=== PATIENT | male | born 1985 | race Caucasian/White ===

== ENCOUNTER 2017-05-30 13:34 | Emergency (ER) | payer SELFPAY ==
[2017-05-30 15:46] VITALS: BP 118/66
--- NOTE | 2017-05-30 16:22 | UC ---
Asthma HPI - HPI Summary HPI Summary: This is a 31 yo gentleman with asthma who ran out of his inhalers. He has been out of his Breo ~2 weeks and his albuterol ~2d. He has had some increased SOB since being without his inhalers, but nothing severe. His PCP left their prior practice and he has not established with a new one yet. Denies cough, SOB at time of exam. No fevers or other acute illness. - History of Current Complaint Chief Complaint: UCAsthma Stated Complaint: SOB ASTHMA - Allergy/Home Medications Allergies/Adverse Reactions: Allergies Allergy/AdvReac Type Severity Reaction Status Date / Time No Known Allergies Allergy Verified 05/30/17 14:14 PMH/Surg Hx/FS Hx/Imm Hx Respiratory History: Asthma - Surgical History Surgical History: None - Family History Known Family History: Positive: Respiratory Disease - Asthma - Social History Alcohol Use: Occasionally Substance Use Type: Marijuana Smoking Status (MU): Never Smoked Tobacco Household Exposure Type: Cigarettes Review of Systems Constitutional: Negative Skin: Negative Eyes: Negative ENT: Negative Respiratory: Shortness Of Breath Cardiovascular: Negative Gastrointestinal: Negative Genitourinary: Negative Motor: Negative Neurovascular: Negative Musculoskeletal: Negative Neurological: Negative Psychological: Negative All Other Systems Reviewed And Are Negative: Yes Physical Exam Triage Information Reviewed: Yes Appearance: Well-Appearing Vital Signs: Initial Vital Signs Temp 97.5 F 05/30/17 14:10 Pulse 84 05/30/17 14:10 Resp 18 05/30/17 14:10 BP 122/76 05/30/17 14:10 Pulse Ox 100 05/30/17 14:10 Vital Signs Reviewed: Yes Respiratory: Positive: Chest non-tender, Lungs clear, Decreased breath sounds - diffusely. Negative: Rhonchi, Stridor, Wheezing Cardiovascular: Positive: RRR, No Murmur Asthma Course/Dx - Course Course Of Treatment: This is a 31 yo with asthma who has run out of his inhalers. No distress at time of exam. Referral to new PCP has been made and 1 month supply of inhalers sent. - Differential Dx/Diagnosis Differential Diagnosis/HQI/PQRI: Bronchitis, COPD Excerbation, Pneumonia Provider Diagnoses: 1. Asthma Discharge - Discharge Plan Condition: Stable Disposition: AGAINST MEDICAL ADVICE Prescriptions: Albuterol HFA INHALER* [Ventolin HFA Inhaler*] 2 puff INH Q6H PRN #1 mdi PRN Reason: shortness of breath/cough Fluticasone Furoate-Vilanterol [Breo Ellipta 200-25 Mcg/INH] 1 inh PO DAILY #1 inh Patient Education Materials: Asthma (ED) Referrals: No Primary Care Phys,NOPCP [Primary Care Provider] - Additional Instructions: Activity: As tolerated Instructions: 1. Resume use of inhalers
--- NOTE | 2017-06-01 10:24 | UC ---
Progress - Progress Note Progress Note: Patient called about a problem with albuterol rx. I spoke with the pharmacist at [facility] and the prescription for Pro-air is ready with no copay.
== END 2017-05-30 16:21 | disposition left against medical advice (07) ==
LOC: UCEAST 13:34
DX: J45.909 Unspecified asthma, uncomplicated (principal)
CPT/HCPCS: 99212; G0463

== ENCOUNTER 2017-08-30 10:01 | Emergency (ER) | payer SELFPAY ==
[2017-08-30 10:13] VITALS: BP 125/82
[2017-08-30] MEDS ORDERED: NS 0.9% 1000 ML* 1,000 ML IV ONE (10:29)
[2017-08-30] MEDS ORDERED: methylPREDNISolone 125 MG* 2 ML VIAL IV ONE (10:29)
[2017-08-30] MEDS ORDERED: Magnesium Sulfate 2 GM IV* 2 GM/50 ML BAG IV ONE (10:29)
[2017-08-30] MEDS ORDERED: Albuterol/Ipratropium NEB.SOL* Albuterol 2.5 MG/Ipratropium 0.5 MG 3 ML ONE (10:32)
[2017-08-30] MEDS ORDERED: Albuterol 2.5 MG/3 ML NEB.SOL* (0.083%) INH SCH (11:00)
--- NOTE | 2017-08-30 11:00 | RAD ---
Indication: Wheezing, slight fever, generalized aches. History of asthma. Comparison: May 14, 2016 Technique: Upright AP 1035 hours Report: Elevated lung volumes may reflect obstructive lung disease or simply exuberant inspiratory effort for examination. No pulmonary infiltrate, focal pulmonary lesion, pleural effusion, pneumothorax. The heart, pulmonary vasculature, and mediastinal contours are unremarkable. IMPRESSION: 1. Elevated lung volumes may reflect obstructive lung disease or simply exuberant inspiratory effort for examination. 2. No evidence for pneumonia.
[2017-08-30 11:02] LABS: PCO2 Arterial 35 mmHg (35-45)
[2017-08-30 11:17] LABS: Hematocrit 43 % (42-52); Hemoglobin 14.4 g/dl (14.0-18.0); Mean Corpuscular HGB Conc 33 g/dl (31-36); Mean Corpuscular Hemoglobin 31 pg (27-31); Mean Corpuscular Volume 92 fL (80-94); Mean Platelet Volume 8 um3 (7.4-10.4); Red Blood Count 4.71 10^6/ul (4.0-5.4); Red Cell Distribution Width 15 % (10.5-15); White Blood Count 15.4 10^3/ul (3.5-10.8)
[2017-08-30 11:36] LABS: Albumin 4.2 g/dL (3.2-5.2); BUN/Creatinine Ratio 11.8 (8-20); C Reactive Protein 21.25 mg/L (< 5.00); Calcium 9.5 mg/dL (8.6-10.3); EGFR African American 110.3 (>60); EGFR Non-African American 85.8 (>60); Globulin 3.2 g/dL (2-4); Potassium 3.7 mmol/L (3.5-5.0); Total Bilirubin 1.3 mg/dL (0.2-1.0); Total Protein 7.4 g/dL (6.4-8.9)
[2017-08-30] MEDS ORDERED: Albuterol HFA INHALER* 8 gm MDI INH ONE (13:36)
--- NOTE | 2017-09-01 08:10 | ED ---
Abdi Banerjee Angela, scribed for Noel Camacho MD on 08/30/17 at 1034 . Shortness of Breath - HPI Summary HPI Summary: This pt is a 32 y/o male presenting to [facility] [place] c/o SOB and productive cough x2 days. Pt reports he has generalized body ache. Pt is very SOB and is not speaking in full sentences. He denies being intubated before. Per triage note, pt reports slight fevers and dyspnea. Per triage note, pt has tried Mucinex and tylenol with no relief. PMHx: asthma - History of Current Complaint Chief Complaint: EDShortnessOfBreath Time Seen by Provider: 08/30/17 10:29 Hx Obtained From: Patient Onset/Duration: Lasting Days, Still Present Timing: Constant Current Severity: Severe Associated Signs & Symptoms: Cough (Productive), Wheezing - Allergy/Home Medications Allergies/Adverse Reactions: Allergies Allergy/AdvReac Type Severity Reaction Status Date / Time No Known Allergies Allergy Verified 05/30/17 14:14 PMH/Surg Hx/FS Hx/Imm Hx Endocrine/Hematology History: Denies: Hx Diabetes, Hx Thyroid Disease Cardiovascular History: Denies: Hx Hypertension Respiratory History: Reports: Hx Asthma Denies: Hx Chronic Obstructive Pulmonary Disease (COPD) GI History: Denies: Hx Ulcer Sensory History: Reports: Hx Contacts or Glasses - glasses Opthamlomology History: Reports: Hx Contacts or Glasses - glasses - Immunization History Date of Tetanus Vaccine: Unknown Infectious Disease History: No Infectious Disease History: Denies: Hx Clostridium Difficile, Hx Hepatitis, Hx Human Immunodeficiency Virus (HIV), Hx of Known/Suspected MRSA, Hx Shingles, Hx Tuberculosis, Hx Known/ Suspected VRE, Hx Known/Suspected VRSA, History Other Infectious Disease, Traveled Outside the [place] in Last 30 Days - Family History Known Family History: Positive: Respiratory Disease - Asthma - Social History Alcohol Use: Occasionally Hx Substance Use: Yes Substance Use Type: Reports: Marijuana Hx Tobacco Use: No Smoking Status (MU): Never Smoked Tobacco Review of Systems Positive: Fever - slight. Negative: Chills Eyes: Negative ENT: Negative Cardiovascular: Negative Positive: Shortness Of Breath, Cough Positive: Myalgia All Other Systems Reviewed And Are Negative: Yes Physical Exam - Summary Physical Exam Summary: VITAL SIGNS: Reviewed. GENERAL: Patient is a well-developed and nourished male. Patient is in acute respiratory distress. He is not able to speak in full sentences. HEAD AND FACE: No signs of trauma. ~No ecchymosis, hematomas or skull depressions. No sinus tenderness. EYES: PERRLA, EOMI x 2, No injected conjunctiva, no nystagmus. EARS: Hearing grossly intact. Ear canals and tympanic membranes are within normal limits. MOUTH: Oropharynx within normal limits. NECK: Supple, trachea is midline, no adenopathy, no JVD, no carotid bruit, no c- spine tenderness, neck with full ROM. CHEST: Symmetric, no tenderness at palpation LUNGS: Pt has decreased breath sounds. Slight wheezing in both apices of the lungs. CVS: Regular rate and rhythm, S1 and S2 present, no murmurs or gallops appreciated. ABDOMEN: Soft, non-tender. No signs of distention. No rebound no guarding, and no masses palpated. Bowel sounds are normal. EXTREMITIES: FROM in all major joints, no edema, no cyanosis or clubbing. NEURO: Alert and oriented x 3. No acute neurological deficits. Speech is normal and follows commands. SKIN: Dry and warm Triage Information Reviewed: Yes Vital Signs On Initial Exam: Initial Vitals Temp Pulse Resp BP Pulse Ox 99.1 F 72 20 125/82 97 08/30/17 10:11 08/30/17 10:11 08/30/17 10:11 08/30/17 10:11 08/30/17 10:11 Vital Signs Reviewed: Yes Diagnostics - Vital Signs Vital Signs Temp Pulse Resp BP Pulse Ox 08/30/17 10:11 99.1 F 72 20 125/82 97 - Laboratory Lab Results: Lab Results 08/30/17 08/30/17 08/30/17 Range/Units 10:44 11:04 11:04 WBC (3.5-10.8) 10^3/ul RBC (4.0-5.4) 10^6/ul Hgb (14.0-18.0) g/dl Hct (42-52) % MCV (80-94) fL MCH (27-31) pg MCHC (31-36) g/dl RDW (10.5-15) % Plt Count (150-450) 10^3/ul MPV (7.4-10.4) um3 Neut % (Auto) (38-83) % Lymph % (Auto) (25-47) % Anderson % (Auto) (1-9) % Eos % (Auto) (0-6) % Baso % (Auto) (0-2) % Absolute Neuts (auto) (1.5-7.7) 10^3/ul Absolute Lymphs (auto) (1.0-4.8) 10^3/ul Absolute Monos (auto) (0-0.8) 10^3/ul Absolute Eos (auto) (0-0.6) 10^3/ul Absolute Basos (auto) (0-0.2) 10^3/ul Absolute Nucleated RBC 10^3/ul Nucleated RBC % ABG pH 7.40 (7.35-7.45) ABG pCO2 35 (35-45) mmHg ABG pO2 71 L (80-100) mmHg ABG HCO3 22.9 (19-31) mmol/L ABG O2 Saturation 96.9 (95-98) % ABG Base Excess -2.5 L (-2.0-2.0) Sodium 135 (133-145) mmol/L Potassium 3.7 (3.5-5.0) mmol/L Chloride 107 (101-111) mmol/L Carbon Dioxide 23 (22-32) mmol/L Anion Gap 5 (2-11) mmol/L BUN 12 (6-24) mg/dL Creatinine 1.02 (0.67-1.17) mg/dL Est GFR ( Amer) 110.3 (>60) Est GFR (Non-Af Amer) 85.8 (>60) BUN/Creatinine Ratio 11.8 (8-20) Glucose 113 H (70-100) mg/dL Calcium 9.5 (8.6-10.3) mg/dL Total Bilirubin 1.30 H (0.2-1.0) mg/dL AST 26 (13-39) U/L ALT 23 (7-52) U/L Alkaline Phosphatase 85 (34-104) U/L C-Reactive Protein 21.25 H (< 5.00) mg/L B-Natriuretic Peptide 55 ( - 100) pg/mL Total Protein 7.4 (6.4-8.9) g/dL Albumin 4.2 (3.2-5.2) g/dL Globulin 3.2 (2-4) g/dL Albumin/Globulin Ratio 1.3 (1-3) 08/30/17 Range/Units 11:04 WBC 15.4 H (3.5-10.8) 10^3/ul RBC 4.71 (4.0-5.4) 10^6/ul Hgb 14.4 (14.0-18.0) g/dl Hct 43 (42-52) % MCV 92 (80-94) fL MCH 31 (27-31) pg MCHC 33 (31-36) g/dl RDW 15 (10.5-15) % Plt Count 264 (150-450) 10^3/ul MPV 8 (7.4-10.4) um3 Neut % (Auto) 67.3 (38-83) % Lymph % (Auto) 21.5 L (25-47) % Anderson % (Auto) 5.0 (1-9) % Eos % (Auto) 5.3 (0-6) % Baso % (Auto) 0.9 (0-2) % Absolute Neuts (auto) 10.4 H (1.5-7.7) 10^3/ul Absolute Lymphs (auto) 3.3 (1.0-4.8) 10^3/ul Absolute Monos (auto) 0.8 (0-0.8) 10^3/ul Absolute Eos (auto) 0.8 H (0-0.6) 10^3/ul Absolute Basos (auto) 0.1 (0-0.2) 10^3/ul Absolute Nucleated RBC 0 10^3/ul Nucleated RBC % 0 ABG pH (7.35-7.45) ABG pCO2 (35-45) mmHg ABG pO2 (80-100) mmHg ABG HCO3 (19-31) mmol/L ABG O2 Saturation (95-98) % ABG Base Excess (-2.0-2.0) Sodium (133-145) mmol/L Potassium (3.5-5.0) mmol/L Chloride (101-111) mmol/L Carbon Dioxide (22-32) mmol/L Anion Gap (2-11) mmol/L BUN (6-24) mg/dL Creatinine (0.67-1.17) mg/dL Est GFR ( Amer) (>60) Est GFR (Non-Af Amer) (>60) BUN/Creatinine Ratio (8-20) Glucose (70-100) mg/dL Calcium (8.6-10.3) mg/dL Total Bilirubin (0.2-1.0) mg/dL AST (13-39) U/L ALT (7-52) U/L Alkaline Phosphatase (34-104) U/L C-Reactive Protein (< 5.00) mg/L B-Natriuretic Peptide ( - 100) pg/mL Total Protein (6.4-8.9) g/dL Albumin (3.2-5.2) g/dL Globulin (2-4) g/dL Albumin/Globulin Ratio (1-3) Result Diagrams: 08/30/17 11:04 08/30/17 11:04 Lab Statement: Any lab studies that have been ordered have been reviewed, and results considered in the medical decision making process. - Radiology chest XR Xray Interpretation: Positive (See Comments) - IMPRESSION: 1. Elevated lung volumes may reflect obstructive lung disease or simply exuberant inspiratory effort for examination. 2. No evidence for pneumonia. ED physician has reviewed this radiology report and agrees. Radiology Interpretation Completed By: Radiologist - EKG 1057 Cardiac Rate: NL - 71 bpm EKG Rhythm: Sinus Rhythm EKG Comparison: No Significant Change - to prior EKG on 12/26/15. Re-Evaluation - Re-Evaluation First Eval Re-Evaluation Time: 13:30 Comment: On re-examination, pt no longer has wheezing. He is speaking in full sentences. Course/Dx - Course Assessment/Plan: This pt is a 32 y/o male presenting to [facility] c/o SOB and productive cough x2 days. Pt reports he has generalized body ache. Pt is very SOB and is not speaking in full sentences. He denies being intubated before. Per triage note, pt reports slight fevers and dyspnea. Per triage note, pt has tried Mucinex and tylenol with no relief. PMHx: asthma. Test results without any significant abnormalities except for WBC of 15.4, CRP of 21.2. Chest XR shows 1. Elevated lung volumes may reflect obstructive lung disease or simply exuberant inspiratory effort for examination. 2. No evidence for pneumonia. Pt was given solumedrol and 3 duonebs and his symptoms improved. He was observed for approximately 3 hours in the ED. In the last re-evaluation, lungs are clear to auscultation bilaterally and he is feeling better. Pt has no other complaints. Pt will be discharged to home with follow up from his PCR. Pt was given prescriptions for albuterol and prednisone. - Diagnoses Differential Diagnosis/HQI/PQRI: Positive: Asthma, Bronchitis, COPD Exacerbation , Pneumonia Provider Diagnoses: Asthma exacerbation Discharge - Discharge Plan Condition: Stable Disposition: HOME Prescriptions: Albuterol HFA INHALER* [Ventolin HFA Inhaler*] 1 puff INH Q4H PRN #1 mdi PRN Reason: Shortness Of Breath predniSONE TAB* [Deltasone TAB*] 40 mg PO DAILY #8 tab Patient Education Materials: Asthma (ED) Referrals: No Primary Care Phys,NOPCP [Primary Care Provider] - Additional Instructions: Please follow up with your primary care provider. RETURN TO THE ED FOR ANY WORSENING SYMPTOMS. The documentation as recorded by the Abdi villarreal Angela accurately reflects the service I personally performed and the decisions made by , Noel Camacho MD.
== END 2017-08-30 14:09 | disposition home or self-care (01) ==
LOC: ED 10:01
DX: J45.901 Unspecified asthma with (acute) exacerbation (principal); R05 Cough; M79.1 Myalgia; F12.90 Cannabis use, unspecified, uncomplicated
CPT/HCPCS: 36415; 36600; 71010; 80053; 82803; 83880; 85025; 86140; 87040; 93005; 94640; 96365; 96375; 99283; A9270-GY; J2930; J3475

== ENCOUNTER 2017-10-29 10:23 | Emergency (ER) | payer SELFPAY ==
[2017-10-29 10:35] VITALS: BP 105/51
== END 2017-10-29 11:38 | disposition left against medical advice (07) ==
LOC: ED 10:23
DX: J45.909 Unspecified asthma, uncomplicated (principal); Z76.0 Encounter for issue of repeat prescription; Z53.21 Procedure and treatment not carried out due to patient leaving prior to being seen by health care provider

== ENCOUNTER 2017-12-23 08:58 | Emergency (ER) | payer SELFPAY ==
[2017-12-23 09:09] VITALS: BP 112/73
--- NOTE | 2017-12-23 09:19 | UC ---
Respiratory Complaint HPI - HPI Summary HPI Summary: Pt presents requesting a refill on his albuterol HFA inhaler. He recently lost his insurance and his new insurance won't be active for the next 2-4 weeks. He tells me that he has a history of asthma that has been worsening in the last 5 years. His previous PCP put him on Breo with great results, but now he cannot afford it. He currently has no symptoms and is breathing without difficulty. - History of Current Complaint Chief Complaint: UCMedRefill Stated Complaint: MED REFILL Time Seen by Provider: 12/23/17 09:11 Hx Obtained From: Patient Pain Intensity: 0 - Allergies/Home Medications Allergies/Adverse Reactions: Allergies Allergy/AdvReac Type Severity Reaction Status Date / Time No Known Allergies Allergy Verified 12/23/17 09:05 PMH/Surg Hx/FS Hx/Imm Hx Previously Healthy: Yes Respiratory History: Asthma - Surgical History Surgical History: None - Family History Known Family History: Positive: Respiratory Disease - Asthma - Social History Lives: With Family Alcohol Use: Occasionally Substance Use Type: Marijuana Smoking Status (MU): Never Smoked Tobacco Household Exposure Type: Cigarettes Review of Systems Constitutional: Negative Skin: Negative Respiratory: Negative Cardiovascular: Negative Neurological: Negative Psychological: Negative All Other Systems Reviewed And Are Negative: Yes Physical Exam Triage Information Reviewed: Yes Appearance: Well-Appearing, No Pain Distress, Well-Nourished Vital Signs: Initial Vital Signs Temp 98.8 F 12/23/17 09:06 Pulse 74 12/23/17 09:06 Resp 20 12/23/17 09:06 BP 112/73 12/23/17 09:06 Pulse Ox 99 12/23/17 09:06 Vital Signs Reviewed: Yes ENT: Positive: Hearing grossly normal, Pharynx normal, TMs normal, Uvula midline. Negative: Pharyngeal erythema, Nasal congestion, Nasal drainage, TM bulging, TM dull, TM red, Tonsillar swelling, Tonsillar exudate, Sinus tenderness Neck: Positive: Supple, Nontender, No Lymphadenopathy Respiratory: Positive: Chest non-tender, Lungs clear, Normal breath sounds, No respiratory distress, No accessory muscle use Cardiovascular: Positive: RRR, No Murmur, Pulses Normal Neurological: Positive: Alert Psychological: Positive: Age Appropriate Behavior Skin: Negative: rashes, significant lesion(s) UC Diagnostic Evaluation - Laboratory O2 Sat by Pulse Oximetry: 99 Respiratory Course/Dx - Course Course Of Treatment: I contacted local pharmacies and it appears that Symbicort , with a drug coupon, is the most inexpensive option - but is still $150+ and unaffordable for pt. For now we will refill his albuterol HFA and I have advised him to return to if he feels his asthma worsening off of the LABA/ICS - Differential Dx/Diagnosis Provider Diagnoses: Asthma Discharge - Discharge Plan Condition: Stable Disposition: HOME Patient Education Materials: Asthma (DC) Referrals: No Primary Care Phys,NOPCP [Primary Care Provider] - Additional Instructions: If you develop a fever, shortness of breath, chest pain, new or worsening symptoms - please call your PCP or go to the ED.
[2017-12-23] MEDS ORDERED: Albuterol HFA INHALER* 8 gm MDI INH ONE (09:31)
== END 2017-12-23 09:58 | disposition home or self-care (01) ==
LOC: UCEAST 08:58
DX: J45.909 Unspecified asthma, uncomplicated (principal); Z76.0 Encounter for issue of repeat prescription; F12.90 Cannabis use, unspecified, uncomplicated; Z77.22 Contact with and (suspected) exposure to environmental tobacco smoke (acute) (chronic)
CPT/HCPCS: 99212; A9270-GY; G0463

== ENCOUNTER 2018-03-20 15:43 | Emergency (ER) | payer BC ==
[2018-03-20 15:52] VITALS: BP 120/64
--- NOTE | 2018-03-20 16:03 | UC ---
Padma Banerjee Rebecca, scribed for Noel Camacho MD on 03/20/18 at 1600 . General HPI - HPI Summary HPI Summary: Pt is a 32 y/o M with a PMHx of asthma who presents to [facility] for a medication refill. He ran out of his Symbicort and does not have a PCP. Confirms he still has his rescue inhaler. Denies any symptoms. - History of Current Complaint Chief Complaint: UCMedRefill Stated Complaint: medication refill Time Seen by Provider: 03/20/18 15:54 Hx Obtained From: Patient Current Severity: None Pain Intensity: 0 Pain Location at: NEGATIVE Associated Signs & Symptoms: Positive: Other - Medication refill - Allergy/Home Medications Allergies/Adverse Reactions: Allergies Allergy/AdvReac Type Severity Reaction Status Date / Time No Known Allergies Allergy Verified 03/20/18 15:53 PMH/Surg Hx/FS Hx/Imm Hx - Additional Past Medical History Additional PMH: NEGATIVE PMHx: HTN, COPD, CAD Respiratory History: Asthma - Surgical History Surgical History: None Surgery Procedure, Year, and Place: [facility] [place] - Family History Known Family History: Positive: Respiratory Disease - Asthma - Social History Alcohol Use: Occasionally Substance Use Type: Marijuana Smoking Status (MU): Never Smoked Tobacco Household Exposure Type: Cigarettes Review of Systems Constitutional: Other - Needs medication refill Skin: Negative Eyes: Negative ENT: Negative Respiratory: Negative Cardiovascular: Negative Gastrointestinal: Negative Genitourinary: Negative Motor: Negative Neurovascular: Negative Musculoskeletal: Negative Neurological: Negative Psychological: Negative All Other Systems Reviewed And Are Negative: Yes Physical Exam - Summary Physical Exam Summary: VITAL SIGNS: Reviewed. GENERAL: ~Patient is a well developed and nourished male who is lying comfortable in the stretcher. ~Patient is not in any acute respiratory distress. HEAD AND FACE: Normocephalic EYES: PERRLA, EOMI x 2. EARS: Hearing grossly intact. MOUTH: Oropharynx within normal limits. NECK: Supple, trachea is midline, no adenopathy, no JVD, no carotid bruit. CHEST: Symmetric, no tenderness at palpation LUNGS: Clear to auscultation bilaterally. No wheezing or crackles. CVS: Regular rate and rhythm, S1 and S2 present, no murmurs or gallops appreciated. ABDOMEN: Soft, non-tender. Bowel sounds are normal. No abdominal abnormal pulsations. EXTREMITIES: Full ROM in all major joints, no edema, no cyanosis or clubbing. NEURO: Alert and oriented x 3. No acute neurological deficits. Speech is normal and follows commands. SKIN: Dry and warm Triage Information Reviewed: Yes Vital Signs: Initial Vital Signs Temp 98.5 F 03/20/18 15:48 Pulse 59 03/20/18 15:48 Resp 18 03/20/18 15:48 BP 120/64 03/20/18 15:48 Pulse Ox 100 03/20/18 15:48 Vital Signs Reviewed: Yes Course/Dx - Course Course Of Treatment: Pt is a 32 y/o M with a PMHx of asthma who presents to [facility] for a medication refill. He ran out of his Symbicort and does not have a PCP. Confirms he still has his rescue inhaler. Pt here for medicaiton refill with no active symptoms. Discharge home to follow up with PCP. - Differential Dx - Multi-Symptom Provider Diagnoses: Asthma Discharge - Sign-Out/Discharge Documenting (check all that apply): Discharge/Admit/Transfer - Discharge - Discharge Plan Condition: Stable Disposition: HOME Referrals: No Primary Care Phys,NOPCP [Primary Care Provider] - Additional Instructions: RETURN TO URGENT CARE OR THE ED FOR ANY WORSENING OR NEW SYMPTOMS. The documentation as recorded by the Padma villarreal Rebecca accurately reflects the service I personally performed and the decisions made by , Noel Camacho MD.
== END 2018-03-20 16:10 | disposition home or self-care (01) ==
LOC: UCEAST 15:43
DX: J45.909 Unspecified asthma, uncomplicated (principal); Z76.0 Encounter for issue of repeat prescription

== ENCOUNTER 2018-04-29 17:22 | Emergency (ER) | payer BC ==
[2018-04-29 17:31] VITALS: BP 120/65
--- NOTE | 2018-04-29 17:41 | UC ---
Mir Banerjee Stephanie, scribed for Noel Camacho MD on 04/29/18 at 1739 . General HPI - HPI Summary HPI Summary: The pt is a 32 y/o M presenting to with c/o needing refills on his Breo and albuterol inhalers. He denies current physical complaints. - History of Current Complaint Chief Complaint: UCGeneralIllness Stated Complaint: MEDICATION REFILL Time Seen by Provider: 04/29/18 17:33 Hx Obtained From: Patient Pain Intensity: 0 Associated Signs & Symptoms: Positive: Other - denies all physical complaints - Allergy/Home Medications Allergies/Adverse Reactions: Allergies Allergy/AdvReac Type Severity Reaction Status Date / Time No Known Allergies Allergy Verified 04/29/18 17:31 PMH/Surg Hx/FS Hx/Imm Hx Cardiovascular History: Other Other Cardiovascular History: Denies HTN Respiratory History: Asthma - Surgical History Surgical History: None Surgery Procedure, Year, and Place: [facility] - Family History Known Family History: Positive: Respiratory Disease - Asthma - Social History Occupation: Employed Full-time Lives: With Family Alcohol Use: Occasionally Substance Use Type: Marijuana Smoking Status (MU): Former Smoker Have You Smoked in the Last Year: Yes Household Exposure Type: Cigarettes Review of Systems Constitutional: Negative Skin: Negative Eyes: Negative ENT: Negative Respiratory: Negative Cardiovascular: Negative Gastrointestinal: Negative Genitourinary: Negative Motor: Negative Neurovascular: Negative Musculoskeletal: Negative Neurological: Negative Psychological: Negative All Other Systems Reviewed And Are Negative: Yes Physical Exam - Summary Physical Exam Summary: VITAL SIGNS: Reviewed. GENERAL: Patient is a well-developed and nourished MALE who is lying comfortable in the stretcher. Patient is not in any acute respiratory distress. HEAD AND FACE: Normocephalic EYES: PERRLA, EOMI x 2. EARS: Hearing grossly intact. MOUTH: Oropharynx within normal limits. NECK: Supple, trachea is midline, no adenopathy, no JVD, no carotid bruit. CHEST: Symmetric, no tenderness at palpation LUNGS: Clear to auscultation bilaterally. No wheezing or crackles. CVS: Regular rate and rhythm, S1 and S2 present, no murmurs or gallops appreciated. ABDOMEN: Soft, non-tender. Bowel sounds are normal. No abdominal abnormal pulsations. EXTREMITIES: Full ROM in all major joints, no edema, no cyanosis or clubbing. NEURO: Alert and oriented x 3. No acute neurological deficits. Speech is normal and follows commands. SKIN: Dry and warm Triage Information Reviewed: Yes Vital Signs: Initial Vital Signs Temp 98.3 F 04/29/18 17:29 Pulse 80 04/29/18 17:29 Resp 16 04/29/18 17:29 BP 120/65 04/29/18 17:29 Pulse Ox 100 04/29/18 17:29 Vital Signs Reviewed: Yes Course/Dx - Course Course Of Treatment: 32-year-old male with history of asthma here for medication refills. He has no complaints. He was given a referral for a primary care physician. - Differential Dx - Multi-Symptom Provider Diagnoses: medication refill Discharge - Sign-Out/Discharge Documenting (check all that apply): Discharge/Admit/Transfer - Discharge Plan Condition: Stable Disposition: HOME Prescriptions: Albuterol HFA INHALER* [Ventolin HFA Inhaler*] 1 puff INH Q4H PRN #1 mdi PRN Reason: Shortness Of Breath Fluticasone/Vilanterol MDI(NF) [Breo Ellipta MDI (NF)] 1 puff INH DAILY #1 mdi Patient Education Materials: Medicine Refill (ED) Referrals: No Primary Care Phys,NOPCP [Primary Care Provider] - [facility] [facility] [Outside] - Billing Disposition and Condition Condition: STABLE Disposition: Home The documentation as recorded by the Mir villarreal Stephanie accurately reflects the service I personally performed and the decisions made by me, Noel Camacho MD.
== END 2018-04-29 17:44 | disposition home or self-care (01) ==
LOC: UCEAST 17:22
DX: J45.909 Unspecified asthma, uncomplicated (principal); Z76.0 Encounter for issue of repeat prescription; Z87.891 Personal history of nicotine dependence; Z82.5 Family history of asthma and other chronic lower respiratory diseases
CPT/HCPCS: 99212; G0463

== ENCOUNTER 2018-08-29 18:41 | Emergency (ER) | payer BC, OTHER ==
[2018-08-29 18:56] VITALS: BP 113/70
[2018-08-29] MEDS ORDERED: Albuterol HFA INHALER* 8 gm MDI INH ONE (19:01)
--- NOTE | 2018-08-29 19:04 | UC ---
General HPI - HPI Summary HPI Summary: This patient is a 33 year old M presenting to [facility] with a chief complaint of the need for a medication refill. He has daily asthma but is currently out of his Rx of Breo and Ventolin and wants a refill. The patient runs out every month because he moves around a lot and does not have a PCP in this area. The patient rates the pain 0/10 in severity. Symptoms aggravated by nothing. Symptoms alleviated by nothing. - History of Current Complaint Chief Complaint: UCRespiratory Stated Complaint: ASTHMA Time Seen by Provider: 08/29/18 18:57 Hx Obtained From: Patient Onset/Duration: Sudden Onset, Still Present Current Severity: None Pain Intensity: 0 Associated Signs & Symptoms: Positive: Other - needs a medication refill - Allergy/Home Medications Allergies/Adverse Reactions: Allergies Allergy/AdvReac Type Severity Reaction Status Date / Time No Known Allergies Allergy Verified 08/29/18 18:54 PMH/Surg Hx/FS Hx/Imm Hx Endocrine History: Other Other Endocrine History: No DM Cardiovascular History: Other Other Cardiovascular History: No HTN Respiratory History: Asthma - Surgical History Surgical History: None Surgery Procedure, Year, and Place: [place] [facility] - Family History Known Family History: Positive: Respiratory Disease - Asthma - Social History Alcohol Use: Occasionally Substance Use Type: Marijuana Smoking Status (MU): Former Smoker Have You Smoked in the Last Year: Yes Household Exposure Type: Cigarettes Review of Systems Constitutional: Other - denies fever ENT: Other - has daily asthma, needs medication refill All Other Systems Reviewed And Are Negative: Yes Physical Exam - Summary Physical Exam Summary: VITAL SIGNS: Reviewed. GENERAL: Patient is a well-developed and nourished MALE who is lying comfortable in the stretcher. Patient is not in any acute respiratory distress. HEAD AND FACE: Normocephalic EYES: PERRLA, EOMI x 2. EARS: Hearing grossly intact. MOUTH: Oropharynx within normal limits. NECK: Supple, trachea is midline, no adenopathy, no JVD, no carotid bruit. CHEST: Symmetric, no tenderness at palpation LUNGS: Clear to auscultation bilaterally. No wheezing or crackles. CVS: Regular rate and rhythm, S1 and S2 present, no murmurs or gallops appreciated. ABDOMEN: Soft, non-tender. Bowel sounds are normal. No abdominal abnormal pulsations. EXTREMITIES: Full ROM in all major joints, no edema, no cyanosis or clubbing. NEURO: Alert and oriented x 3. No acute neurological deficits. Speech is normal and follows commands. SKIN: Dry and warm Triage Information Reviewed: Yes Vital Signs: Initial Vital Signs Temp 99.6 F 08/29/18 18:50 Pulse 80 08/29/18 18:50 Resp 16 08/29/18 18:50 BP 113/70 08/29/18 18:50 Pulse Ox 99 08/29/18 18:50 Vital Signs Reviewed: Yes Course/Dx - Course Course Of Treatment: Patient is a 33-year-old male presents to the urgent care requesting a refill of his Ventolin and Brivia. He has history of asthma and he ran out of the medications. He has no active complaints. Patient was given refills and discharged home with follow-up with PCP. He is hemodynamically stable alert oriented 3 - Differential Dx - Multi-Symptom Provider Diagnoses: refill of medication Discharge - Sign-Out/Discharge Documenting (check all that apply): Patient Departure All imaging exams completed and their final reports reviewed: No Studies - Discharge Plan Condition: Stable Disposition: HOME Prescriptions: Albuterol HFA INHALER* [Ventolin HFA Inhaler*] 2 puff INH Q4H PRN #1 mdi PRN Reason: Shortness Of Breath Fluticasone/Vilanterol MDI(NF) [Breo Ellipta MDI 100/25(NF)] 1 puff INH DAILY # 1 mdi Patient Education Materials: Medicine Refill (ED) Referrals: [facility] REFERRAL [Outside] No Primary Care Phys,NOPCP [Primary Care Provider] - Additional Instructions: Take Acetaminophen or ibuprofen for pain Increase your fluid intake Return to the or go to the emergency department if symptoms worsen Follow-up with primary care physician in next 2-3 days - Billing Disposition and Condition Condition: STABLE Disposition: Home - Attestation Statements Document Initiated by Scribe: Yes Documenting Scribe: Reece Urban Provider For Whom Gely is Documenting (Include Credential): Noel Camacho MD Scribe Attestation: Reece Banerjee, scribed for Noel Camacho MD on 08/29/18 at 1940. Scribe Documentation Reviewed: Yes Provider Attestation: The documentation as recorded by the Reece villarreal accurately reflects the service I personally performed and the decisions made by me, Noel Camacho MD
== END 2018-08-29 19:19 | disposition home or self-care (01) ==
LOC: UCEAST 18:41
DX: J45.909 Unspecified asthma, uncomplicated (principal)
CPT/HCPCS: 99212; A9270-GY; G0463